=== PATIENT | female | born 1990 | race Hispanic/Latino ===

== ENCOUNTER 2018-09-17 11:33 | Outpatient (CLI) | payer MEDICAID ==
[2018-09-17 12:09] VITALS: BP 102/62
[2018-09-17] MEDS ORDERED: LACTATED RINGERS 500 ML IV ONE (12:21)
[2018-09-17 12:41] LABS: Bilirubin,Urine NEG (Negative); Blood,Urine NEG (Negative); Color,Urine Yellow (Yellow); Protein,Urine <15 mg/dL mg/dL (Negative); Urobilinogen,Urine < 2.0 mg/dL (<2.0)
[2018-09-17 12:42] LABS: Bacteria,Urine 3+ /HPF (Negative); Mucus,Urine FEW /HPF
== END 2018-09-17 13:40 | disposition home or self-care (01) ==
LOC: TRG 11:33
PROVIDERS: ATTEND Obstetrics & Gynecology
DX: O47.03 False labor before 37 completed weeks of gestation, third trimester (principal); O99.333 Smoking (tobacco) complicating pregnancy, third trimester; F17.210 Nicotine dependence, cigarettes, uncomplicated; Z3A.36 36 weeks gestation of pregnancy; Z90.49 Acquired absence of other specified parts of digestive tract
CPT/HCPCS: 81001

== ENCOUNTER 2018-09-30 10:43 | Outpatient (CLI) | payer MEDICAID | END 2018-09-30 13:26 | disposition home or self-care (01) | LOC: TRG 10:43 | CPT/HCPCS: 59025 ==

== ENCOUNTER 2018-09-30 21:38 | Inpatient (IN) | payer MEDICAID ==
[2018-09-30] MEDS ORDERED: BRETHINE IVP PRN (22:57)
[2018-09-30] MEDS ORDERED: XYLOCAINE 2% INFILTRATI ONE (22:57)
[2018-09-30] MEDS ORDERED: BRETHINE SUB-Q PRN (22:57)
[2018-09-30] MEDS ORDERED: MINERAL OIL PO PRN (22:57)
[2018-09-30] MEDS ORDERED: STADOL IV PRN (22:57)
[2018-09-30] MEDS ORDERED: LACTATED RINGERS 1,000 ML IV SCH (23:00)
[2018-09-30] MEDS ORDERED: PITOCin/NS 20 UNIT/1000ML DRIP 20 UNITS/1,000 ML BAG IV SCH (23:00)
[2018-09-30 23:53] LABS: Hematocrit 32.5 % (30.3-42.9); Hemoglobin 10.5 gm/dl (10.1-14.3); Mean Corpuscular HGB Conc 32 % (30-34); Mean Corpuscular Volume 80 fl (79-97); Platelet Count 302 K/mm3 (140-440); Red Blood Count 4.08 M/mm3 (3.65-5.03); Red Cell Distribution Width 16.4 % (13.2-15.2)
[2018-10-01 00:04] LABS: Amphetamine Screen,Urine PRESUMPTIVE NEGATIVE; Benzodiazepines Screen,Urine PRESUMPTIVE NEGATIVE; Cannabinoid Screen,Urine PRESUMPTIVE NEGATIVE; Cocaine Screen,Urine PRESUMPTIVE NEGATIVE; Methadone Screen,Urine PRESUMPTIVE NEGATIVE; Opiate Screen,Urine PRESUMPTIVE NEGATIVE
[2018-10-01] MEDS ORDERED: NARCAN 2 MG/2 ML IV PRN (01:02)
--- NOTE | 2018-10-01 01:02 | Anesthesia Consultation ---
Anesthesia Consult and Med Hx Date of service: 10/01/18 - Airway Anesthetic Teeth Evaluation: Good ROM Head & Neck: Adequate Mental/Hyoid Distance: Adequate Mallampati Class: Class II Intubation Access Assessment: Good - Pulmonary Exam CTA: Yes - Cardiac Exam Cardiac Exam: No Murmur - Pre-Operative Health Status ASA Pre-Surgery Classification: ASA2 Proposed Anesthetic Plan: Epidural - Pulmonary Hx Smoking: Yes Hx Asthma: No COPD: No Hx Pneumonia: No - Cardiovascular System Hx Hypertension: No - Central Nervous System Hx Seizures: No Hx Psychiatric Problems: No - Endocrine Hx Renal Disease: No Hx End Stage Renal Disease: No Hx Hypothyroidism: No Hx Hyperthyroidism: No - Hematic Hx Anemia: No Hx Sickle Cell Disease: No - Other Systems Hx Alcohol Use: No Hx Cancer: No
[2018-10-01] MEDS ORDERED: NACL 0.9% 100 ML ONE (01:39)
--- NOTE | 2018-10-01 01:42 | History and Physical Report ---
History of Present Illness Date of examination: 10/01/18 Date of admission: 09/30/18 23:27 Chief complaint: I'm in labor History of present illness: Patient is a 27 year old who presents to L&D in active labor at 39 weeks. Her history was complicated by late presentation to care at 32 weeks, self reported history of crack cocaine use and trichomonas successfully treated. Past History Past Medical History: no pertinent history Past Surgical History: no surgical history [employer] History: trichomonas Social history: single, lives with family - Obstetrical History Expected Date of Delivery: 10/08/18 Actual Gestation: 39 Week(s) 0 Day(s) : 2 Number of Living Children: 1 Medications and Allergies Allergies Allergy/AdvReac Type Severity Reaction Status Date / Time No Known Allergies Allergy Verified 08/04/18 11:01 Home Medications Medication Instructions Recorded Confirmed Last Taken Type Penicillin Vk [Veetids TAB] 500 mg PO DAILY 09/30/18 09/30/18 09/30/18 11:00 History Active Meds: Active Medications Butorphanol Tartrate (Stadol) 2 mg IV Q2H PRN PRN Reason: Pain , Severe (7-10) Last Admin: 09/30/18 23:58 Dose: 2 mg Documented by: Ephedrine Sulfate (Ephedrine Sulfate) 10 mg IV Q2M PRN PRN Reason: Hypotension Lactated Ringer's (Lactated Ringers) 1,000 mls @ 125 mls/hr IV DIRECT RONN Last Admin: 09/30/18 23:59 Dose: 125 mls/hr Documented by: Oxytocin/Sodium Chloride (Pitocin/Ns 20 Unit/1000ml Drip) 20 units in 1,000 mls @ 125 mls/hr IV DIRECT RONN Fentanyl/Bupivacaine/Sodium Chlor (Fentanyl-Bupiv 2 Mcg/Ml-0.125%) 200 mcg in 100 mls @ 12 mls/hr EPIDURAL TITR RONN; Protocol Mineral Oil (Mineral Oil) 30 ml PO QHS PRN PRN Reason: Constipation Naloxone HCl (Narcan 2 Mg/2 Ml) 0.2 mg IV Q5M PRN PRN Reason: Respiratory sedation Terbutaline Sulfate (Brethine) 0.25 mg SUB-Q ONCE PRN PRN Reason: Hyperstimulation/Hypertonicity Terbutaline Sulfate (Brethine) 0.25 mg IVP ONCE PRN PRN Reason: Hyperstimulation/Hypertonicity Review of Systems All systems: negative Constitutional: weight gain Genitourinary: pelvic pain, contractions - Vital Signs Vital signs: Vital Signs Pulse BP 88 113/72 09/30/18 22:01 09/30/18 22:01 Temp Pulse Resp BP Pulse Ox 97.9 F 91 H 129/81 97 09/30/18 22:41 10/01/18 01:25 10/01/18 01:25 10/01/18 01:05 - Physical Exam Breasts: Positive: deferred Cardiovascular: Regular rate, Normal S1, Normal S2 Lungs: Positive: Clear to auscultation, Normal air movement Abdomen: Positive: normal appearance, soft, normal bowel sounds Genitourinary (Female): Positive: normal external genitalia, normal perenium Vulva: both: normal Uterus: Positive: normal size, enlarged Extremities: Positive: normal Deep Tendon Reflex Grade: Normal +2 - Obstetrical Cervical Dilatation: 5 Cervical Effacement Percentage: 90 station: -1 Uterine Contraction Pattern: Regular Uterine Tone Measurement Phase: Contraction Uterine Contraction Intensity: Moderate Results Result Diagrams: 09/30/18 23:17 Abnormal lab results 09/30/18 Range/Units 23:17 WBC 13.2 H (4.5-11.0) K/mm3 MCH 26 L (28-32) pg RDW 16.4 H (13.2-15.2) % All other labs normal. Assessment and Plan IUP at 39 weeks in active labor. Admit. AROM when able. Prep for epidural. Anticipate .
--- NOTE | 2018-10-01 01:48 | Procedure Note ---
OB Delivery Note - Delivery Date of Delivery: 10/01/18 Surgeon: JACKIE TAMAYO Estimated blood loss: 500cc - Vaginal Delivery presentation: vertex Delivery position: OA Intrapartum events: bleeding site-undetermine Delivery induction: none Delivery monitor: external FHT, external uterine Route of delivery: Delivery placenta: spontaneous Delivery cord: 3 umbilical vessels Episiotomy: none Delivery laceration: 1st degree Delivery repair: vicryl Anesthesia: epidural Delivery comments: Viable male delivered over intact perineum. appeared pale and unresponsive. Code pink called and NICU came urgently. Resuscitative efforts taken. Large amount of clot delivered after fetus. Placenta delivered spontaneously and intact. Small laceration repaired with 2.0 vicryl. Excellent hemostasis. patient tolerated procedure well. - Infant A at 1 minute: 0 at 5 minutes: 1 Infant Gender: Male
[2018-10-01] MEDS ORDERED: fentaNYL-BUPIV 2 MCG/ML-0.125% 200 MCG/100 ML BAG EPIDURAL SCH (02:00)
[2018-10-01] MEDS ORDERED: SODIUM CHLORIDE FLUSH SYRINGE 10 ML IV PRN (05:17)
[2018-10-01] MEDS ORDERED: BENADRYL PO PRN (05:17)
[2018-10-01] MEDS ORDERED: PHENERGAN PO PRN (05:17)
[2018-10-01] MEDS ORDERED: ZOFRAN IV PRN (05:17)
[2018-10-01] MEDS ORDERED: TUCKS PAD TP PRN (05:17)
[2018-10-01] MEDS ORDERED: TYLENOL PO PRN (05:17)
[2018-10-01] MEDS ORDERED: PHENERGAN PR PRN (05:17)
[2018-10-01] MEDS ORDERED: TORADOL IV PRN (05:17)
[2018-10-01] MEDS ORDERED: LANSINOH TP PRN (05:17)
[2018-10-01] MEDS ORDERED: MILK OF MAGNESIA PO PRN (05:17)
[2018-10-01] MEDS ORDERED: DULCOLAX PR PRN (05:17)
[2018-10-01] MEDS: IBUPROFEN PO SCH ×2 (05:35→11:22)
[2018-10-01] MEDS ORDERED: COLACE PO SCH (10:00)
[2018-10-01] MEDS ORDERED: AFLURIA QUAD 2018-2019 SYRINGE IM ONE (12:00)
--- NOTE | 2018-10-01 12:08 | Discharge Summary ---
Providers - Providers Date of Admission: 09/30/18 23:27 Date of discharge: 10/01/18 Attending physician: JACKIE TAMAYO Primary care physician: JACKIE TAMAYO Hospitalization Reason for admission: active labor Delivery: Episiotomy: midline baby: male Condition at discharge: Good Disposition: DC-01 TO HOME OR SELFCARE Plan - Discharge Medications Prescriptions: Ibuprofen [Motrin] 800 mg PO Q8HR PRN #40 tablet PRN Reason: Pain, Moderate (4-6) - Provider Discharge Summary Activity: routine, no sex for 6 weeks, no heavy lifting 4 weeks, no strenuous ex ercise Diet: routine Instructions: routine Additional instructions: [] Smoking cessation referral if applicable(refer to patient education folder for contact #) [] Refer to [facility]'s [facility] Booklet Call your doctor immediately for: * Fever > 100.5 * Heavy vaginal bleeding ( >1 pad per hour) * Severe persistent headache * Shortness of breath * Reddened, hot, painful area to leg or breast * Drainage or odor from incision. * Keep incision clean and dry at all times and follow doctor's instructions regarding bathing/showering - Follow up plan Follow up: JACKIE TAMAYO MD [Primary Care Provider] - (Follow-up appt 4-6 weeks. Call office for appointment.) Forms: [facility] Discharge Summary
[2018-10-03 11:47] VITALS: BP 102/46
== END 2018-10-01 12:25 | disposition home or self-care (01) | DRG 775 ==
LOC: TRG 21:38 → LD 23:27 → OB 10-01 04:14
PROVIDERS: ADMIT Obstetrics & Gynecology; ATTEND Obstetrics & Gynecology
PROC: 10E0XZZ Delivery of Products of Conception, External Approach (ICD-10-PCS; principal; 2018-10-01)
PROC: 0HQ9XZZ Repair Perineum Skin, External Approach (ICD-10-PCS; 2018-10-01)
PROC: 3E0R3BZ Introduction of Anesthetic Agent into Spinal Canal, Percutaneous Approach (ICD-10-PCS; 2018-10-01)
PROC: 00HU33Z Insertion of Infusion Device into Spinal Canal, Percutaneous Approach (ICD-10-PCS; 2018-10-01)
DX: O99.334 Smoking (tobacco) complicating childbirth (principal); F17.200 Nicotine dependence, unspecified, uncomplicated; O70.0 First degree perineal laceration during delivery; Z3A.39 39 weeks gestation of pregnancy; Z37.1 Single stillbirth
CPT/HCPCS: 36415; 59025; 80307; 85027; 86592; 86850; 86900; 86901; 88307; G0378; J0595; J2590; J7120